=== PATIENT | female | born 1955 | race Caucasian/White ===

== ENCOUNTER → 2018-06-01 | Outpatient (CLI) | payer OTHER ==
--- NOTE | 2018-06-01 18:12 | PCVCIMAG ---
EXAM: BILATERAL LOWER EXTREMITY ARTERIAL DUPLEX INDICATION: Peripheral Arterial Disease. Leg pain. FINDINGS: Right Leg: Satisfactory arterial waveforms throughout the common/profunda/superficial femoral, popliteal, anterior tibial, peroneal, and posterior tibial arteries. No flow limiting stenosis seen. Left Leg: Satisfactory arterial waveforms throughout the common/profunda/superficial femoral, popliteal, anterior tibial, peroneal, and posterior tibial arteries. No flow limiting stenosis seen. IMPRESSION: No flow limiting stenosis in the right lower extremity. No flow limiting stenosis in the left lower extremity. LOC:[id number]
== END | disposition home or self-care (01) ==
LOC: PCVCIMAG 12:33
PROVIDERS: ATTEND Family Medicine
DX: I73.9 Peripheral vascular disease, unspecified (principal)
CPT/HCPCS: 93925

== ENCOUNTER 2019-03-29 09:55 | Day surgery (SDC) | payer OTHER ==
[~2019-03-29 09:55] MED LIST: ATOR40TA59 PO; CEFAZOLIN SODIUM IO ONE; CHOL2000 PO; DULA1.5P SQ; EPINEPHRINE IO ONE; HYDROmorphone 2 MG/ML VIAL IV PRN; IV RINGERS,LACTATED 1000ML 1,000 ML IV SCH; LEVO88TA4 PO; LIDOCAINE 1% PF 2 ML VIAL. ID PRN; LISI-334 PO; METF500T16 PO; MORPHINE SULFATE 2 MG/ML VIAL. IV PRN; ONDANSETRON PF 4 MG/2 ML VIAL. IV PRN; PROCHLORPERAZINE 10 MG/2 ML VIAL. IV PRN; [UNRECOGNIZED DRUG - OTHER] IO ONE; fentaNYL PF VIAL 100 MCG/2 ML VIAL IV PRN
[2019-03-29] MEDS: CYCLOPENTOLATE 1% OPTH SOLUTION 2ML BOTTLE. OS SCH ×3 (10:59→11:11)
[2019-03-29] MEDS ORDERED: PROPARACAINE 0.5% OPHTH SOLUTION 15ML BOTTLE. OS ONE (11:00)
[2019-03-29] MEDS ORDERED: LIDOCAINE 2% JELLY 6ML IN APPLICATOR. MM SCH (11:00)
[2019-03-29] MEDS: PHENYLEPHRINE 10% OPHTH SOLUTION 5ML BOTTLE. OS SCH ×3 (11:00→11:11)
[2019-03-29] MEDS ORDERED: CIPROFLOXACIN 0.3% OPHTH SOLUTION 5ML BOTTLE. OS ONE (11:00)
[2019-03-29] MEDS ORDERED: CHONDROIT-SOD-HYALURONATE KIT. ONE (11:46)
[2019-03-29] MEDS ORDERED: LIDOCAINE 1% PF 2 ML VIAL. ONE (11:46)
[2019-03-29] MEDS ORDERED: NEO/POLYMYX/DEXAMETH OPHTH OINTMENT 3.5GM TUBE. ONE (11:46)
[2019-03-29] MEDS ORDERED: CHONDROITIN-SOD-HYALURONATE 0.5 ML DISP.SYRIN. ONE (11:47)
[2019-03-29] MEDS ORDERED: MIDAZOLAM HCL/PF 2 MG/2 ML VIAL. ONE (12:33)
[2019-03-29 13:28] VITALS: BP 130/74
--- NOTE | 2019-03-29 15:01 | OP ---
DATE OF SURGERY: 03/29/2019 PREOPERATIVE DIAGNOSES: 1. Cataract of the left eye. 2. Astigmatism. PROCEDURE: Cataract extraction with intraocular lens placement and orientation of the toric intraocular lens. ANESTHESIA: Topical with monitored anesthesia care. DESCRIPTION OF PROCEDURE: The left eye was prepped with Betadine in the usual sterile fashion and draped. Please note that the patient's cardinal meridians of 180 degrees and 90 degrees were marked in a primary position and seeded and then once the patient had been draped, an axis marker was used and placed at 17 degrees as per the calculations. A paracentesis was then performed followed by insertion of phenylephrine admixed with lidocaine and balanced salt solution. A temporal clear corneal incision was made and viscoelastic injected into the anterior chamber. A capsulorrhexis was then performed followed by hydrodissection and expression of the nucleus to the pupillary plane. Viscoat was used to both anterior and posterior to the nucleus and it was evacuated with the phacoemulsification handpiece. The I/A handpiece was used to remove the cortex and the posterior subcapsular cataract. Viscoelastic was injected in the capsular bag and the Tim, Model [id number] with a power of 25.5 diopters was placed into the capsular bag. It was oriented in the appropriate position following the evacuation of the viscoelastic posterior to the lens. Balanced salt solution was used to hydrate the corneal incision and once no leaks were noted, Maxitrol was placed on the eye and the eye shield and the patient was sent to the recovery room uneventfully. JUDE VENTURA MD DR: TREVOR/mayra JOB#: [id number] / [id number]
== END 2019-03-29 13:58 | disposition home or self-care (01) ==
LOC: SURG 09:55
PROVIDERS: ATTEND Ophthalmology
DX: H26.9 Unspecified cataract (principal); H52.202 Unspecified astigmatism, left eye; Z79.899 Other long term (current) drug therapy
CPT/HCPCS: 66984; 82962; C1780; J0171; J0690; J2250

== ENCOUNTER → 2019-12-08 | Outpatient (CLI) | payer OTHER ==
[~2019-12-08] MED LIST changes: -CEFAZOLIN SODIUM IO ONE; -EPINEPHRINE IO ONE; -HYDROmorphone 2 MG/ML VIAL IV PRN; -IV RINGERS,LACTATED 1000ML 1,000 ML IV SCH; -LIDOCAINE 1% PF 2 ML VIAL. ID PRN; -MORPHINE SULFATE 2 MG/ML VIAL. IV PRN; -ONDANSETRON PF 4 MG/2 ML VIAL. IV PRN; -PROCHLORPERAZINE 10 MG/2 ML VIAL. IV PRN; -[UNRECOGNIZED DRUG - OTHER] IO ONE; -fentaNYL PF VIAL 100 MCG/2 ML VIAL IV PRN
== END ==
LOC: SPEC 15:49
PROVIDERS: ATTEND Obstetrics & Gynecology
DX: Z01.419 Encounter for gynecological examination (general) (routine) without abnormal findings (principal)
CPT/HCPCS: 88175